=== PATIENT | female | born 1970 | race Caucasian/White ===

== ENCOUNTER 2017-10-09 16:00 | Outpatient (CLI) | payer BC | END 2017-10-09 16:01 | disposition home or self-care (01) | LOC: SLEEPLAB 16:00 | PROVIDERS: ATTEND Family Medicine | DX: G47.33 Obstructive sleep apnea (adult) (pediatric) (principal); R53.83 Other fatigue; R51 Headache; G31.84 Mild cognitive impairment of uncertain or unknown etiology; E66.9 Obesity, unspecified; F41.8 Other specified anxiety disorders | CPT/HCPCS: 95806 ==

== ENCOUNTER 2017-12-25 16:09 | Outpatient (CLI) | payer BC | END 2017-12-25 16:10 | disposition home or self-care (01) | LOC: BICMAMMO 16:09 | PROVIDERS: ATTEND Obstetrics & Gynecology | DX: Z12.31 Encounter for screening mammogram for malignant neoplasm of breast (principal) | CPT/HCPCS: 77063; 77067 ==

== ENCOUNTER 2019-01-02 08:39 | Outpatient (CLI) | payer BC ==
--- NOTE | 2019-01-02 09:19 | MMO ---
Bilateral MAMMO Bilat Screen [facility]. CLINICAL HISTORY: Patient is 48 years old and is seen for screening. The patient has no family history of breast cancer. The patient has no personal history of cancer. VIEWS: The views performed were: bilateral craniocaudal with tomosynthesis and bilateral mediolateral oblique with tomosynthesis. FILMS COMPARED: The present examination has been compared to prior imaging studies performed at [facility] on 09/30/2014, 10/05/2015, 10/05/2016 and 12/25/2017. MAMMOGRAM FINDINGS: There are scattered fibroglandular densities. There are no suspicious masses, suspicious calcifications, or new areas of architectural distortion. IMPRESSION: THERE IS NO MAMMOGRAPHIC EVIDENCE OF MALIGNANCY. A ROUTINE FOLLOW-UP MAMMOGRAM IN 1 YEAR IS RECOMMENDED. THE RESULTS OF THIS EXAM WERE SENT TO THE PATIENT. ACR BI-RADS Category 1 - Negative MAMMOGRAPHY NOTE: 1. A negative mammogram report should not delay a biopsy if a dominant of clinically suspicious mass is present. 2. Approximately 10% to 15% of breast cancers are not detected by mammography. 3. Adenosis and dense breasts may obscure an underlying neoplasm. Reported by: MAE ENRIQUEZ MD Electonically Signed: [id number]
== END 2019-01-02 08:40 | disposition home or self-care (01) ==
LOC: BICMAMMO 08:39
PROVIDERS: ATTEND Obstetrics & Gynecology
DX: Z12.31 Encounter for screening mammogram for malignant neoplasm of breast (principal)
CPT/HCPCS: 77063; 77067

== ENCOUNTER 2019-02-01 10:24 | Outpatient (CLI) | payer BC ==
--- NOTE | 2019-02-05 22:41 | EKG ---
Test Reason : Blood Pressure : / mmHG Vent. Rate : 087 BPM Atrial Rate : 087 BPM P-R Int : 146 ms QRS Dur : 076 ms QT Int : 390 ms P-R-T Axes : 053 034 022 degrees QTc Int : 469 ms Normal sinus rhythm Normal ECG No previous ECGs available Confirmed by Dale MEADE ([id number]) on 02/05/2019 10:41:08 PM Referred By: WANDY Confirmed By:Dale MEADE
== END 2019-02-01 10:25 | disposition home or self-care (01) ==
LOC: EKG 10:24
PROVIDERS: ATTEND Specialist
DX: E66.9 Obesity, unspecified (principal)
CPT/HCPCS: 36415; 80053; 80061; 82306; 82607; 82728; 82746; 83036; 83540; 83970; 84425; 84436; 84443; 84480; 85025; 93005; 93010

== ENCOUNTER 2019-02-21 15:45 | Outpatient (CLI) | payer BC | END 2019-02-21 15:46 | disposition home or self-care (01) | LOC: DTY/OP 15:45 | PROVIDERS: ATTEND Specialist | DX: E66.01 Morbid (severe) obesity due to excess calories (principal) | CPT/HCPCS: 97802 ==

== ENCOUNTER 2019-03-13 17:00 | Inpatient (IN) | payer BC ==
[2019-03-26] MEDS ORDERED: Fentanyl 100 MCG/2 ML VIAL ONE ×2 (10:33→12:59)
[2019-03-26] MEDS ORDERED: Heparin 5,000 UNITS/ML VIAL ONE (10:41)
[2019-03-26] MEDS ORDERED: Bupivacaine/Epinephrine 0.25% 30 ML VIAL ONE (10:58)
[2019-03-26] MEDS ORDERED: Rocuronium Bromide 10 MG/ML (10ML VIAL) ONE (11:41)
[2019-03-26] MEDS ORDERED: Ondansetron PF 4 MG/2 ML Vial ONE (11:41)
[2019-03-26] MEDS ORDERED: Dexamethasone 20 MG/5 ML VIAL ONE (11:41)
[2019-03-26] MEDS ORDERED: PROPOFOL 200 MG/20 ML VIAL ONE (11:41)
[2019-03-26] MEDS ORDERED: ePHEDrine 50 MG/ML VIAL ONE (11:41)
[2019-03-26] MEDS ORDERED: Ketorolac Tromethamine 30 MG/ML VIAL ONE (11:41)
[2019-03-26] MEDS ORDERED: Glycopyrrolate 0.2 MG/ML 5 ML SYRINGE ONE (11:41)
[2019-03-26] MEDS ORDERED: PHENYLEPHRINE-NS 100 MCG/ML 10 ML SYRINGE ONE (11:41)
[2019-03-26] MEDS ORDERED: Lidocaine 1% PF 5 ML VIAL ONE (11:41)
[2019-03-26] MEDS ORDERED: Meperidine HCl/PF 25 MG/ML VIAL SLOW IVP PRN (12:38)
[2019-03-26] MEDS ORDERED: Promethazine HCl 25 MG/ML VIAL IM PRN ×3 (12:38→13:09)
[2019-03-26] MEDS ORDERED: Ondansetron HCl/PF 4 MG/2 ML Vial IVP PRN (12:38)
[2019-03-26] MEDS ORDERED: Promethazine HCl 25 MG/ML VIAL SLOW IVP PRN (12:38)
[2019-03-26] MEDS ORDERED: HYDROmorphone 2 MG/ML VIAL SLOW IVP PRN (12:38)
[2019-03-26] MEDS ORDERED: Ketorolac Tromethamine 30 MG/ML VIAL IVP PRN (12:38)
[2019-03-26] MEDS ORDERED: Dextrose 5% in Water 1,000 ML IV PRN (12:47)
[2019-03-26] MEDS ORDERED: Dextrose 50% Abboject 50 ML SYRINGE SLOW IVP PRN (12:47)
[2019-03-26] MEDS ORDERED: diphenhydrAMINE 50 MG/ML VIAL IVP PRN ×2 (12:47→13:09)
[2019-03-26] MEDS ORDERED: hydrALAZINE 20 MG/ML VIAL SLOW IVP PRN (12:47)
[2019-03-26] MEDS ORDERED: Ondansetron PF 4 MG/2 ML Vial IVP PRN (12:47)
[2019-03-26] MEDS ORDERED: Hydrocodone-Acetamin 15 ML UDCUP PO PRN (12:47)
[2019-03-26] MEDS ORDERED: diphenhydrAMINE 50 MG/ML VIAL IM PRN (13:09)
[2019-03-26] MEDS ORDERED: Zolpidem Tartrate 5 MG TAB PO PRN (13:09)
[2019-03-26] MEDS ORDERED: diphenhydrAMINE 25 MG CAP PO PRN (13:09)
[2019-03-26] MEDS ORDERED: fentaNYL Citrate/PF 2,000 MCG in Sodium Chloride 0.9% 60 ML IV PRN (13:09)
[2019-03-26] MEDS ORDERED: Naloxone HCl 0.4 mg/ml Vial IV PRN (13:09)
[2019-03-26] MEDS ORDERED: Communication Order-Pharmacy FS SCH (13:15)
[2019-03-26] MEDS ORDERED: Promethazine HCl 25 MG/ML VIAL ONE (13:20)
[2019-03-26] MEDS: D5 1/2 NS w/20 mEq KCL 1,000 ML IV SCH ×2 (18:32→20:21)
[2019-03-26] MEDS: Ketorolac Tromethamine 30 MG/ML VIAL IVP SCH ×2 (18:34→23:42)
[2019-03-26] MEDS: CEFAZOLIN 2 GM in Premix Bag 1 BAG IVPB SCH (18:36)
[2019-03-26 19:14] VITALS: BMI 36.1
[2019-03-26] MEDS: Ondansetron PF 4 MG/2 ML Vial IVP PRN (20:28)
[2019-03-26] MEDS: Chloraseptic Spray 180 ml Bottle PO PRN (20:55)
[2019-03-27] MEDS: Ondansetron PF 4 MG/2 ML Vial IVP PRN (01:24)
[2019-03-27] MEDS: Chloraseptic Spray 180 ml Bottle PO PRN (01:25)
[2019-03-27] MEDS: CEFAZOLIN 2 GM in Premix Bag 1 BAG IVPB SCH (03:55)
[2019-03-27 05:27] LABS: #Lymphocytes 1.5 thou/uL (1.20-3.40); #Monocytes 0.6 thou/uL (0.11-0.59); #Neutrophils 6.2 thou/uL (1.40-6.50); %Eosinophils 0.1 % (0.0-10.0); %Lymphocytes 17.7 % (21.0-51.0); %Monocytes 7.2 % (0.0-10.0); %Neutrophils 74.9 % (42.0-75.0); Hemoglobin 11.5 g/dL (12.0-16.0); Mean Corpuscular HGB CONC 33.9 g/dL (32.0-36.0); Mean Corpuscular Hemoglobin 31.9 pg (27.0-31.0); Mean Corpuscular Volume 94.3 fL (78.0-98.0); Mean Platelet Volume 7.3 fL (7.4-10.4); Platelet Count 243 thou/uL (130-400); RBC Distribution Width 10.9 % (11.5-14.5); White Blood Cell (WBC) Count 8.2 thou/uL (4.8-10.8)
[2019-03-27 05:46] LABS: Anion Gap 7 mmol/L (10-20); BUN (Urea Nitrogen) 8 mg/dL (7.0-18.7); Calc. Creatinine Clearance 151 mL/min (70-130); Calcium 8.3 mg/dL (7.8-10.44); Carbon Dioxide 27 mmol/L (22-29); Chloride 105 mmol/L (98-107); Estimated GFR-MDRD 83; Glucose 127 mg/dL (70-105); Potassium 4.3 mmol/L (3.5-5.1); Sodium 135 mmol/L (136-145)
[2019-03-27] MEDS: Ketorolac Tromethamine 30 MG/ML VIAL IVP SCH ×2 (05:59→12:06)
[2019-03-27] MEDS: D5 1/2 NS w/20 mEq KCL 1,000 ML IV SCH (05:59)
--- NOTE | 2019-03-27 07:04 | PDOC.GSPN ---
Surgery Progress Note: Subj - Subjective Narrative: Patient is a 48F who is status post day 1 from gastric sleeve. She reports nausea and left sided abdominal pain w/ movement. Patient denies vomiting. Surgery Progress Note: Obj - Vital signs Vital signs: Vital Signs - Most Recent Temp Pulse Resp BP Pulse Ox 98.1 F 72 16 93/61 95 03/27/19 03:55 03/27/19 03:55 03/27/19 03:55 03/27/19 03:55 03/27/19 03:55 - Physical Exam General: no distress, well developed, well nourished Cardiovascular: regular rate and rhythm Respiratory: clear to auscultation Abdomen: positive bowel sounds Wound: healing well Surgery Progress Note: Results - Labs Result Diagrams: 03/27/19 05:10 03/27/19 05:10 Lab results: Laboratory Results - last 24 hr 03/27/19 03/27/19 05:10 05:10 WBC 8.2 RBC 3.60 L Hgb 11.5 L Hct 33.9 L MCV 94.3 MCH 31.9 H MCHC 33.9 RDW 10.9 L Plt Count 243 MPV 7.3 L Neutrophils % 74.9 Lymphocytes % 17.7 L Monocytes % 7.2 Eosinophils % 0.1 Basophils % 0.0 Neutrophils # 6.2 Lymphocytes # 1.5 Monocytes # 0.6 H Eosinophils # 0.0 Basophils # 0.0 Sodium 135 L Potassium 4.3 Chloride 105 Carbon Dioxide 27 Anion Gap 7 L BUN 8 Creatinine 0.75 Estimated GFR (MDRD) 83 Glucose 127 H Calcium 8.3 Surgery Progress Note: A/P - Plan Plan: 1. Day 1 status post gastric sleeve. -Evaluation via barium swallow study -Progress to clear liquid diet pending results of swallow study -Manage pain as needed -Ambulation as tolerated
--- NOTE | 2019-03-27 08:20 | RAD ---
XR UGI Single Contrast No Air HISTORY: Status post vertical sleeve gastrectomy. Post bariatric surgery evaluation Procedure: Single sip swallow study was performed with administration of 15 mL contrast under fluoros copy. FINDINGS: Contrast traverses the gastroesophageal junction. No leak or evidence of obstruction. IMPRESSION: Normal study.
[2019-03-27] MEDS ORDERED: FLU VACC QS2019-20(6MOS UP)/PF 60 MCG/0.5 ML SYRINGE IM ONE (09:00)
[2019-03-27] MEDS ORDERED: Enoxaparin Sodium 40 MG/0.4 ML SYRINGE SC SCH (09:00)
[2019-03-27] MEDS ORDERED: Pantoprazole 40 MG VIAL IVP SCH (09:00)
--- NOTE | 2019-03-27 09:07 | OP ---
DATE OF PROCEDURE: 03/26/2019 PREOPERATIVE DIAGNOSIS: Morbid obesity. PROCEDURE PERFORMED: Laparoscopic sleeve gastrectomy with esophagogastroscopy. INDICATIONS FOR PROCEDURE: This is a 48-year-old female, morbidly obese, who has attempted multiple weight loss programs without success. FINDINGS: A 38-Salvadorean bougie used. DESCRIPTION OF PROCEDURE: After informed consent was obtained, the patient was taken to the operating room and given general endotracheal anesthesia, placed in the supine position. Abdomen was prepped and draped in usual fashion. Local anesthesia was infiltrated subcutaneously and deep. 12 mm incision was performed approximately 8 inches above the xiphoid slightly to the left. Veress needle was inserted. Drop test was performed. Pneumoperitoneum was created to a volume of 2 L of carbon dioxide. Utilizing a bladeless 12 mm trocar and 0-degree laparoscope, direct visual entry into the abdominal cavity was performed. Pneumoperitoneum was created to a pressure of 15 mmHg. The patient was placed in steep reverse Trendelenburg position. Nancy liver retractor was inserted. Left lobe of the liver retracted superiorly. Pylorus identified. A 12 mm port placed on the right beneath it and two 12s placed in the left subcostal. The omentum was taken off the greater curvature 5 cm from the pylorus utilizing the LigaSure. Short gastrics divided with LigaSure and the left crura defined with the LigaSure. A 38-Salvadorean bougie inserted, directed into the antrum. The linear 60 mm green load stapler was used to divide the antrum to the bougie, gold load along the bougie, and a series of blues through the angle of His. Intraoperative endoscopy was performed. The video endoscope inserted under direct vision and advanced into the sleeve. Staple line inspected. There was no bleeding. Staple line then tested by inflating the new stomach with pressurized air and water, there was no air leak. Stomach decompressed. The small bowel decompressed. The scope removed. The remnant stomach removed from the abdomen through the left lateral port site. The fascia closed with 0 Vicryl suture and the GraNee needle. Trocars and retractors removed. Skin closed with interrupted 4-0 Rapide. Dermabond applied. The patient tolerated the procedure well, transferred to Recovery in good condition. Sponge and needle count verified correct x2. Job ID: [id number]
[2019-03-27] MEDS ORDERED: Hydrocodone-Acetamin 15 ML UDCUP PO PRN (09:48)
[2019-03-27] MEDS ORDERED: Iopamidol 300 61% 30 ML VIAL ONE (10:16)
[2019-03-27 12:12] VITALS: BP 94/62; TEMP 98.2
--- NOTE | 2019-03-28 08:38 | DIS ---
DATE OF ADMISSION: 03/26/2019 DATE OF DISCHARGE: 03/27/2019 DISCHARGE DIAGNOSIS: Morbid obesity. PROCEDURES DURING ADMISSION: Laparoscopic sleeve gastrectomy, intraoperative esophagogastroscopy, and postoperative Gastrografin swallow. HOSPITAL COURSE: The patient was admitted, taken to the operating room. She underwent sleeve gastrectomy. Postoperatively, she is doing well. She is tolerating liquids well. Pain is controlled on p.o. medications. Discharged home on hydrocodone elixir and Zofran. She will follow up with me in 2 weeks. Job ID: [id number]
== END 2019-03-27 13:46 | disposition home or self-care (01) | DRG 621 ==
LOC: SURG A 03-26 10:08 → EDSTATUS 03-26 17:00
PROVIDERS: ADMIT Surgery; ATTEND Surgery
PROC: 0DB64Z3 Excision of Stomach, Percutaneous Endoscopic Approach, Vertical (ICD-10-PCS; principal; 2019-03-26)
PROC: 0DJ08ZZ Inspection of Upper Intestinal Tract, Via Natural or Artificial Opening Endoscopic (ICD-10-PCS; 2019-03-26)
PROC: 3E02340 Introduction of Influenza Vaccine into Muscle, Percutaneous Approach (ICD-10-PCS; 2019-03-27)
DX: E66.01 Morbid (severe) obesity due to excess calories (principal); G47.30 Sleep apnea, unspecified; Z96.641 Presence of right artificial hip joint; Z68.36 Body mass index [BMI] 36.0-36.9, adult; Z99.89 Dependence on other enabling machines and devices; Z23 Encounter for immunization; Z98.51 Tubal ligation status
CPT/HCPCS: 36415; 74241; 80048; 85025; 88307; 88312; 90471; 90686; C9113; G0008; J0690; J1100; J1644; J1650; J1885; J2001; J2405; J2550; J2704; J3010; J3490; Q9967

== ENCOUNTER 2019-03-13 17:05 | Outpatient (CLI) | payer BC ==
--- NOTE | 2019-03-13 18:18 | RAD ---
CHEST TWO VIEWS: 03/13/19 HISTORY: Preoperative exam. COMPARISON: None. FINDINGS: Normal cardiac silhouette. Lungs and pleural spaces are clear. No pneumothorax or osseous abnormalit ies. IMPRESSION: No acute cardiopulmonary process. POS: FLORAH
[2019-03-13 18:20] LABS: BHCG - Serum Negative (NEGATIVE); Pregs Control Background? CLEAR/WHITE (CLR/WHITE); Pregs Control Bar Appear? YES (CONTROL BAR)
[2019-03-13 18:26] LABS: ALT (SGPT) 18 U/L (8-55); AST (SGOT) 16 U/L (5-34); Albumin 4.3 g/dL (3.5-5.0); Alkaline Phosphatase 50 U/L (40-110); Bilirubin, Direct 0.2 mg/dL (0.1-0.3); Bilirubin, Total 0.5 mg/dL (0.2-1.2)
== END 2019-03-13 17:06 | disposition home or self-care (01) ==
LOC: LABBT 17:05
PROVIDERS: ATTEND Surgery
DX: Z01.818 Encounter for other preprocedural examination (principal); E66.01 Morbid (severe) obesity due to excess calories
CPT/HCPCS: 71046; 80076; 84703

== ENCOUNTER 2020-01-22 16:18 | Outpatient (CLI) | payer BC ==
--- NOTE | 2020-01-23 08:18 | MMO ---
Bilateral MAMMO Bilat Screen [facility]. CLINICAL HISTORY: Patient is 49 years old and is seen for screening. The patient has no family history of breast cancer. The patient has no personal history of cancer. VIEWS: The views performed were: bilateral craniocaudal with tomosynthesis and bilateral mediolateral oblique with tomosynthesis. FILMS COMPARED: The present examination has been compared to prior imaging studies performed at [facility] on 10/05/2015, 10/05/2016, 12/25/2017 and 01/02/2019. This study has been interpreted with the assistance of computer-aided detection. MAMMOGRAM FINDINGS: There are scattered fibroglandular densities. There is a mass measuring 6 millimeters seen in the anterior region of the left breast at 12 o'clock. In the right breast, there are no suspicious masses, calcifications or areas of architectural distortion. IMPRESSION: MASS IN THE LEFT BREAST REQUIRES ADDITIONAL EVALUATION. AN ULTRASOUND EXAM IS RECOMMENDED. ADDITIONAL IMAGING. THE RESULTS OF THIS EXAM WERE SENT TO THE PATIENT. ACR BI-RADS Category 0 - Incomplete: Need additional imaging evaluation. [facility] will notify the patient of the need for additional imaging services. MAMMOGRAPHY NOTE: 1. A negative mammogram report should not delay a biopsy if a dominant of clinically suspicious mass is present. 2. Approximately 10% to 15% of breast cancers are not detected by mammography. 3. Adenosis and dense breasts may obscure an underlying neoplasm. Reported by: MICHELE JOHNSON MD Electonically Signed: [id number]
== END 2020-01-22 16:19 | disposition home or self-care (01) ==
LOC: BICMAMMO 16:18
PROVIDERS: ATTEND Obstetrics & Gynecology
DX: Z12.31 Encounter for screening mammogram for malignant neoplasm of breast (principal); N63.22 Unspecified lump in the left breast, upper inner quadrant
CPT/HCPCS: 77063; 77067

== ENCOUNTER 2020-10-26 13:51 | Emergency (ER) | payer BC ==
[2020-10-26 15:30] LABS: Bilirubin Negative (Negative); Blood, Urine Negative (Negative); Clarity Clear (Clear); Glucose, Urine (Dipstick) Normal (Negative); Ketone, Urine Negative (Negative); Leukocyte Negative Leu/uL (Negative); Nitrite Negative (Negative); Protein, Urine (Dipstick) Negative (Neg-Trace); Specific Gravity, Urine 1.008 (1.002-1.036); Urobilinogen Normal mg/dL (Less than 2); pH, Urine 6.5 (5.0-9.0)
[2020-10-26 15:31] LABS: #Lymphocytes 1.7 thou/uL (1.20-3.40); #Monocytes 0.3 thou/uL (0.11-0.59); #Neutrophils 1.9 thou/uL (1.40-6.50); %Eosinophils 0.9 % (0.0-10.0); %Lymphocytes 43.1 % (21.0-51.0); %Monocytes 7.9 % (0.0-10.0); %Neutrophils 48.2 % (42.0-75.0); Hemoglobin 11.3 g/dL (12.0-16.0); Mean Corpuscular HGB CONC 32.7 g/dL (32.0-36.0); Mean Corpuscular Hemoglobin 31.5 pg (27.0-31.0); Mean Corpuscular Volume 96.4 fL (78.0-98.0); Mean Platelet Volume 7.5 fL (7.4-10.4); Platelet Count 232 thou/uL (130-400); Red Blood Cell (RBC) Count 3.58 mill/uL (4.20-5.40)
[2020-10-26 15:36] LABS: Pregnancy Test - Urine (BHCG) Negative (Negative); Pregu Control Background? CLEAR/WHITE (CLR/WHITE); Pregu Control Bar Appear? YES (CONTROL BAR); Specific Gravity 1.008 (1.002-1.036)
[2020-10-26 15:51] LABS: Anion Gap 10 mmol/L (10-20); BUN (Urea Nitrogen) 12 mg/dL (7.0-18.7); Calc. Creatinine Clearance 0 mL/min (70-130); Calcium 9.2 mg/dL (7.8-10.44); Carbon Dioxide 27 mmol/L (22-29); Chloride 105 mmol/L (98-107); Glucose 94 mg/dL (70-105); Sodium 138 mmol/L (136-145)
== END 2020-10-26 16:40 | disposition home or self-care (01) ==
LOC: ERS 13:51
DX: N92.0 Excessive and frequent menstruation with regular cycle (principal); Z79.899 Other long term (current) drug therapy
CPT/HCPCS: 36415; 76856; 80048; 81003; 81025; 85025

== ENCOUNTER 2021-02-03 15:58 | Outpatient (CLI) | payer BC | END 2021-02-03 15:59 | disposition home or self-care (01) | LOC: BICMAMMO 15:58 | PROVIDERS: ATTEND Obstetrics & Gynecology | DX: Z12.31 Encounter for screening mammogram for malignant neoplasm of breast (principal) | CPT/HCPCS: 77063; 77067 ==

== ENCOUNTER 2021-04-12 06:49 | Outpatient (CLI) | payer BC | END 2021-04-12 06:50 | disposition home or self-care (01) | LOC: BICULT 06:49 | PROVIDERS: ATTEND Surgery | DX: R10.11 Right upper quadrant pain (principal) | CPT/HCPCS: 76705 ==

== ENCOUNTER 2021-10-25 19:00 | Outpatient (CLI) | payer BC | END 2021-10-25 19:01 | disposition home or self-care (01) | LOC: SLEEPLAB 19:00 | PROVIDERS: ATTEND Family Medicine | DX: G47.33 Obstructive sleep apnea (adult) (pediatric) (principal); R53.83 Other fatigue; R51.9 Headache, unspecified; F41.9 Anxiety disorder, unspecified; F32.9 Major depressive disorder, single episode, unspecified; Z98.84 Bariatric surgery status | CPT/HCPCS: 95800 ==

== ENCOUNTER 2023-11-15 08:34 | Outpatient (CLI) | payer BC | END 2023-11-15 08:35 | disposition home or self-care (01) | LOC: SCSMRI 08:34 | PROVIDERS: ATTEND Pediatrics | DX: S73.192A Other sprain of left hip, initial encounter (principal); M24.852 Other specific joint derangements of left hip, not elsewhere classified; S76.012A Strain of muscle, fascia and tendon of left hip, initial encounter ==